=== PATIENT | male | born 1975 | race Caucasian/White ===

== ENCOUNTER → 2018-10-15 | Outpatient (REF) ==
--- NOTE | 2018-10-15 16:17 | REP ---
PARTIAL LUMBAR SPINE, THREE VIEWS: HISTORY: Degenerative disc disease. There is no acute fracture or subluxation. The L3-4 through L5-S1 intervertebral discs are decreased in height consistent with disc degeneration. Osteophytes are present on L4 through S1. IMPRESSION: Degenerative change as described above. Electronically Signed by Tommie Hollins MD 10/15/2018 04:18 P
--- NOTE | 2018-10-15 19:32 | REP ---
Clinical: Right knee pain. Technique: AP, lateral, bilateral oblique and sunrise views of the right knee. Findings: Osseous structures, joint spaces, and surrounding soft tissues are normal. No overt osteoarthritic degenerative changes are appreciated. No fracture dislocation. No effusion. Impression: Age-appropriate right knee radiographs. Electronically Signed by Adalberto Pate MD 10/15/2018 07:24 P
== END ==
LOC: M SMT 10:18
PROVIDERS: ATTEND Internal Medicine
DX: M51.36 Other intervertebral disc degeneration, lumbar region (principal)